=== PATIENT | male | born 1970 | race Two or more races ===

== ENCOUNTER 2018-09-11 16:01 | Emergency (ER) | payer SELFPAY ==
[2018-09-11 16:06] VITALS: BP 132/78; PULSE 63; TEMP 98.2; BMI 38.4
--- NOTE | 2018-09-11 16:27 | PDOC ---
History of Present Illness - General Chief Complaint: Ear Problem Stated Complaint: EARACHE Time Seen by Provider: 09/11/18 16:17 History Source: Patient Exam Limitations: No Limitations - History of Present Illness Initial Comments: 09/11/18 16:32 complaints of right ear painfor proximally one week status post manipulation and attempt to extract earwax. Patient states used Q-tip and thinks pushed earwax too far in.States his had painsince that time but denies any drainageor bleeding. Has taken no medication for relief of same. States suffers from excessive earwax but has not everseen ENT or other for treatment and extraction Timing/Duration: 1 week Severity: mild, moderate Associated Symptoms: denies: fever/chills, headaches, malaise Past History - Travel Traveled outside of the country in the last 30 days: No Close contact w/someone who was outside of country & ill: No - Past Medical History Allergies/Adverse Reactions: Allergies Allergy/AdvReac Type Severity Reaction Status Date / Time No Known Allergies Allergy Verified 09/11/18 16:06 Home Medications: Ambulatory Orders Amoxicillin - [Amoxicillin 500mg Capsule -] 500 mg PO TID #21 capsule 09/11/18 COPD: No - Suicide/Smoking/Psychosocial Hx Smoking History: Current every day smoker Number of Cigarettes Smoked Daily: 10 Information on smoking cessation initiated: No Review of Systems - Review of Systems Able to Perform ROS?: Yes Is the patient limited Yoruba proficient: Yes Constitutional: Yes: Symptoms Reported, See HPI. No: Chills, Fever, Malaise HEENTM: Yes: Symptoms Reported, Ear Pain, Ear Discharge Respiratory: Yes: See HPI. No: Symptoms reported, Cough Neurological: Yes: See HPI. No: Symptoms reported, Headache All Other Systems: Reviewed and Negative *Physical Exam - Vital Signs Last Vital Signs Temp Pulse Resp BP Pulse Ox 98.2 F 63 18 132/78 98 09/11/18 16:03 09/11/18 16:03 09/11/18 16:03 09/11/18 16:03 09/11/18 16:03 - Physical Exam General Appearance: Yes: Nourished, Appropriately Dressed, Apparent Distress, Mild Distress HEENT: positive: SMILEY, Rhinorrhea. negative: Normal ENT Inspection, TMs Normal (ilateral ears occluded, left able to visualize TM and is intact but he 5% occluded with cerumen. Right TM is unable to visualize with swelling to canal and completely occluded withcerumen. 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 II-XII NML intact, Fully Oriented, Alert, Normal Mood/ Affect, Normal Response, Motor Strength 5/5 *DC/Admit/Observation/Transfer Diagnosis at time of Disposition: Excessive cerumen in both ear canals Otitis externa Qualifiers: Otitis externa type: unspecified type Chronicity: unspecified Laterality: right Qualified Code(s): H60.91 - Unspecified otitis externa, right ear - Discharge Dispostion Disposition: HOME Condition at time of disposition: Stable Decision to Admit order: No - Referrals Referrals: [facility] [Provider Group] - Patient Instructions Printed Discharge Instructions: DI for Otitis Externa, DI for Cerumen Impaction Additional Instructions: will treat with 1 week of amoxicillin to cover any significant otitis and then start ear wax cleaning regime Do not use Q-tips, or any other small objects on the inner aspect of the ear canal - may only use Q-tips only on the outside to clean ears Ear wax may be packed by use of Q-tips to the inner canal and become hardened May use hydrogen peroxide 3 times a week to continued keep ear wax soft and able to expel Rinse in shower after hydrogen peroxide instillation to wash ear wax out [id number] preparations also assist in wax buildup Aloe up with private physician or ear nose and throat doctor as needed - Post Discharge Activity
== END 2018-09-11 16:34 | disposition home or self-care (01) ==
LOC: JERFT 16:01
DX: H66.92 Otitis media, unspecified, left ear (principal); H61.23 Impacted cerumen, bilateral
CPT/HCPCS: 99281-25